=== PATIENT | male | born 1955 ===

== ENCOUNTER 2024-09-11 15:30 | Emergency (ER) | payer MEDICARE, MEDICAID ==
[2024-09-11 16:32] LABS: BASOPHILS ABSOLUTE AUTO 0.02 10^3/uL (0.00-0.10); BASOPHILS PERCENT AUTO 0.3 % (0.0-1.0); EOSINOPHILS ABSOLUTE AUTO 0.39 10^3/uL (0.10-0.30); HEMATOCRIT 26.7 % (40.0-52.0); HEMOGLOBIN 8.9 g/dL (13.0-17.0); IMMATURE GRAN ABSOLUTE AUTO 0.04 10^3/uL (0.00-0.04); IMMATURE GRAN PERCENT AUTO 0.6 % (0.0-0.4); LYMPHOCYTES ABSOLUTE AUTO 1.74 10^3/uL (1.00-4.00); LYMPHOCYTES PERCENT AUTO 26.7 % (20.0-40.0); MEAN CORPUSCULAR HEMOGLOBIN 29.6 pg (27.0-31.0); MEAN CORPUSCULAR HGB CONC 33.3 g/dL (32.0-36.0); MEAN CORPUSCULAR VOLUME 88.7 fL (82.0-92.0); MEAN PLATELET VOLUME 9.8 fL (7.4-10.4); MONOCYTES ABSOLUTE AUTO 0.64 10^3/uL (0.10-0.80); MONOCYTES PERCENT AUTO 9.8 % (2.0-8.0); NEUTROPHILS ABSOLUTE AUTO 3.68 10^3/uL (2.50-7.00); NEUTROPHILS PERCENT AUTO 56.6 % (50.0-70.0); PLATELET COUNT,PLT 203 10^3/uL (150-400); RED BLOOD CELL COUNT 3.01 10^6/uL (4.50-6.00); RED CELL DISTRIBUTION WIDTH 16.6 % (11.5-14.5); WHITE BLOOD CELL COUNT,WBC 6.51 10^3/uL (5.00-10.00)
[2024-09-11 16:43] LABS: AMPHETAMINES SCREEN, URINE NEGATIVE (NEGATIVE); BARBITURATE SCREEN,URINE NEGATIVE (NEGATIVE); BENZODIAZEPINES SCREEN,URINE NEGATIVE (NEGATIVE); COCAINE METABOLITES,URINE NEGATIVE (NEGATIVE); METHADONE SCREEN, URINE NEGATIVE (NEGATIVE); METHAMPHETAMINES SCREEN, URINE NEGATIVE (NEGATIVE); OXYCODONE SCREEN,URINE NEGATIVE (NEGATIVE); PCP SCREEN,URINE NEGATIVE (NEGATIVE); TCA SCREEN,URINE POSITIVE (NEGATIVE); THC SCREEN,URINE 50 NG/ML NEGATIVE (NEGATIVE)
[2024-09-11 16:44] LABS: ALANINE AMINOTRANSFERASE,ALT 22 U/L (14-63); ALBUMIN 3.07 g/dL (3.40-5.00); ALKALINE PHOSPHATASE 95 U/L (46-116); ANION GAP 14.3 mmol/L (5-15); ASPARTATE AMNIOTRANSFERASE,AST 14 U/L (15-37); BILIRUBIN TOTAL 0.2 mg/dL (0.2-1.0); BLOOD UREA NITROGEN,BUN 45 mg/dL (7-18); CALCIUM 9.4 mg/dL (8.7-10.3); CARBON DIOXIDE,CO2 24.7 mmol/L (21.0-32.0); CHLORIDE,CL 105 mmol/L (98-107); GLUCOSE RANDOM 128 mg/dL (70-140); PROTEIN TOTAL,TP 7.3 g/dL (6.4-8.2); SODIUM,NA 139 mmol/L (136-145)
[2024-09-11 16:47] LABS: ESTIMATED GFR 73 mL/min (>=60); ETHANOL BLOOD MEDICAL < 3 mg/dL (<3)
[2024-09-11] MEDS: Haloperidol Lactate 5 MG/ML SDV IM ONE (17:06)
== END 2024-09-11 21:18 ==
LOC: KA.ED 15:30
DX: F32.A Depression, unspecified (principal); Z88.6 Allergy status to analgesic agent
CPT/HCPCS: 36415; 80053; 80305-QW; 80307; 82140; 85025; 96372; 99284; 99285; J1630

== ENCOUNTER 2024-09-17 11:35 | Emergency (ER) | payer MEDICARE, MEDICAID | END 2024-09-17 13:45 | LOC: KA.ED 11:35 | DX: S42.402A Unspecified fracture of lower end of left humerus, initial encounter for closed fracture (principal); E11.9 Type 2 diabetes mellitus without complications; Z79.82 Long term (current) use of aspirin; Z79.899 Other long term (current) drug therapy; Z88.6 Allergy status to analgesic agent; Z79.4 Long term (current) use of insulin; X58.XXXA Exposure to other specified factors, initial encounter | CPT/HCPCS: 73070-LT; 73200-LT; 99284 ==

== ENCOUNTER 2024-09-18 14:55 | Emergency (ER) | payer MEDICARE, MEDICAID ==
[2024-09-18 15:44] LABS: WHITE BLOOD CELL COUNT,WBC 12.68 10^3/uL (5.00-10.00)
[2024-09-18 15:45] LABS: BASOPHILS ABSOLUTE AUTO 0.01 10^3/uL (0.00-0.10); BASOPHILS PERCENT AUTO 0.1 % (0.0-1.0); EOSINOPHILS ABSOLUTE AUTO 0.16 10^3/uL (0.10-0.30); EOSINOPHILS PERCENT AUTO 1.3 % (1.0-3.0); HEMATOCRIT 23.9 % (40.0-52.0); IMMATURE GRAN ABSOLUTE AUTO 0.02 10^3/uL (0.00-0.04); IMMATURE GRAN PERCENT AUTO 0.2 % (0.0-0.4); LYMPHOCYTES ABSOLUTE AUTO 0.89 10^3/uL (1.00-4.00); MEAN CORPUSCULAR HEMOGLOBIN 29.9 pg (27.0-31.0); MEAN CORPUSCULAR HGB CONC 33.5 g/dL (32.0-36.0); MEAN CORPUSCULAR VOLUME 89.2 fL (82.0-92.0); MEAN PLATELET VOLUME 10.2 fL (7.4-10.4); MONOCYTES ABSOLUTE AUTO 0.96 10^3/uL (0.10-0.80); MONOCYTES PERCENT AUTO 7.6 % (2.0-8.0); NEUTROPHILS ABSOLUTE AUTO 10.64 10^3/uL (2.50-7.00); NEUTROPHILS PERCENT AUTO 83.8 % (50.0-70.0); PLATELET COUNT,PLT 200 10^3/uL (150-400); RED BLOOD CELL COUNT 2.68 10^6/uL (4.50-6.00); RED CELL DISTRIBUTION WIDTH 17.6 % (11.5-14.5)
[2024-09-18 15:51] VITALS: BP 127/70; PULSE 87
[2024-09-18] MEDS: Sodium Chloride 0.9% 1,000 ML IV SCH (16:05)
[2024-09-18 16:35] LABS: APPEARANCE,URINE CLEAR (CLEAR); BILIRUBIN,URINE NEGATIVE (NEGATIVE); COLOR,URINE YELLOW (YELLOW); GLUCOSE,URINE NEGATIVE (NEGATIVE); KETONES,URINE NEGATIVE (NEGATIVE); LEUKOCYTE ESTERASE,URINE SMALL (NEGATIVE); NITRITE,URINE NEGATIVE (NEGATIVE); OCCULT BLOOD,URINE MODERATE (NEGATIVE); PH,URINE 5.5 (5.0-9.0); PROTEIN,URINE 30 mg/dL (NEGATIVE); UROBILINOGEN,URINE 0.2 E.U./dL (0.2-1.0)
[2024-09-18 16:35] LABS: ALANINE AMINOTRANSFERASE,ALT 40 U/L (14-63); ALBUMIN 2.71 g/dL (3.40-5.00); ALKALINE PHOSPHATASE 123 U/L (46-116); ANION GAP 15.7 mmol/L (5-15); ASPARTATE AMNIOTRANSFERASE,AST 55 U/L (15-37); BILIRUBIN TOTAL 0.3 mg/dL (0.2-1.0); BLOOD UREA NITROGEN,BUN 42 mg/dL (7-18); C-REACTIVE PROTEIN 20.11 mg/dL (0.00-0.50); CALCIUM 9.2 mg/dL (8.7-10.3); CARBON DIOXIDE,CO2 20.5 mmol/L (21.0-32.0); CHLORIDE,CL 106 mmol/L (98-107); ESTIMATED GFR 73 mL/min (>=60); GLUCOSE RANDOM 91 mg/dL (70-140); POTASSIUM,K 5.2 mmol/L (3.5-5.1); SODIUM,NA 137 mmol/L (136-145)
[2024-09-18 16:44] LABS: BACTERIA,URINE FEW /HPF (NONE TO FEW); EPITHELIAL CELLS,URINE RARE /LPF; HYALINE CASTS,URINE RARE; RBC,URINE 0-5 /HPF (0-5)
[2024-09-18 16:45] LABS: WBC,URINE 0-5 /HPF (0-5)
[2024-09-18] MEDS: VANCOmycin 1 GM/200 ML 200 ML ONE (16:46)
[2024-09-18] MEDS: Ertapenem 1 GM Vial IVPUSH ONE (16:46)
[2024-09-18] MEDS: VANCOmycin 1 GM in Sodium Chloride 0.9% 250 ML IV ONE (16:51)
== END 2024-09-18 17:20 ==
LOC: KA.ED 14:55
DX: L03.011 Cellulitis of right finger (principal); L02.511 Cutaneous abscess of right hand; R79.82 Elevated C-reactive protein (CRP); D72.829 Elevated white blood cell count, unspecified; Z86.14 Personal history of Methicillin resistant Staphylococcus aureus infection; Z86.19 Personal history of other infectious and parasitic diseases; K21.9 Gastro-esophageal reflux disease without esophagitis; E11.9 Type 2 diabetes mellitus without complications; Z88.8 Allergy status to other drugs, medicaments and biological substances; Z79.82 Long term (current) use of aspirin; Z79.4 Long term (current) use of insulin; Z79.899 Other long term (current) drug therapy
CPT/HCPCS: 36415; 71045; 73130-RT; 80053; 81001; 83605; 85025; 86140; 87040; 87070; 87077; 87186; 87205; 87640; 87641; 96361; 96365; 96375; 99284; 99285-25; J1335; J7030